=== PATIENT | male | born 1955 | race Caucasian/White ===

== ENCOUNTER 2017-08-07 17:25 | Inpatient (IN) | payer OTHER ==
[~2017-08-07] VITALS: Ht 167.6 cm; Wt 93.9 kg
--- NOTE | ~2017-08-07 | H ---
[facility] [place] [address] HISTORY AND PHYSICAL Name: STEPHIE ROBISON Room #: 516-1 ADM IN M.R.#: [id number] Admission: 08/07/17 Attend Phys: Lucho Dorantes MD Discharge: Date of : 59 Report #: [id number] THIS REPORT FOR: //name// CC: Lucho Hull DATE OF SERVICE: 08/07/2017 CHIEF COMPLAINT: CVA, Admission to inpatient rehab. HISTORY OF PRESENT ILLNESS: This is a 62-year-old gentleman who presented to [facility] with symptoms of left-sided weakness beginning 1 day prior that had progressed and he decided to seek further medical attention. Upon admission to the Emergency Department, he could not move his left side and had a headache. Unfortunately, he was outside the window for TPA. MRI performed revealed evidence of right medulla stroke up to the aleisha. He was seen in consultation by Neurology who has added Plavix for further prophylaxis and recommended further tight control on his hypertension, hyperlipidemia, type 2 diabetes and smoking cessation. He was seen by physical and occupational therapies and continued to remain weak. He transferred to [facility] inpatient rehab for further rehabilitation. Today seen in his room. He reports continued left upper extremity weakness. He is able to ambulate now with min assist. He reports some pain in his left trigger finger premorbid. Denies any numbness, tingling. He denies cough, shortness of breath, chest pain, nausea or constipation. PAST MEDICAL HISTORY: Type 2 diabetes, started using insulin approximately 3 years ago, hypertension, hyperlipidemia, history of SD in January of 2015 requiring percutaneous intervention with stents, COPD, umbilical hernia, carpal tunnel bilateral, history of gout, history of anxiety and depression. PAST SURGICAL HISTORY: Bilateral carpal tunnel release, repair of umbilical hernia, surgery on the dorsal aspect of his left hand, radial keratotomy approximately 30+ years ago. SOCIAL HISTORY: He lives at home with his . He smokes approximately half a pack of cigarettes per day. He is a social drinker. 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 Approximately 75% of his time is spent in physical labor, approximately 25% of his time spent at a desk, was independent with all ADLs and mobility prior. ALLERGIES: No known allergies. CODE STATUS: Full code. [address] [address] HISTORY AND PHYSICAL Name: STEPHIE ROBISON Room #: 516-1 [facility] IN M.R.#: [id number] Admission: 08/07/17 Attend Phys: Lucho Dorantes MD Discharge: Date of : 59 Report #: [id number] MEDICATIONS: Nicotine 14 mg patch daily, Paxil 10 mg daily, Plavix 75 mg daily, Lipitor 80 mg daily, aspirin 81 mg daily, metformin 1000 mg twice a day with meals, Effexor 150 mg twice a day, trazodone 50 mg at bedtime, metoprolol 50 mg twice a day, melatonin 1 mg at bedtime, Humalog sliding scale insulin before meals and at bedtime, gabapentin 600 mg at bedtime, clonazepam 0.5 mg every 8 hours as needed, glucagon and dextrose p.r.n., Benadryl 25 mg every 8 hours p.r.n., Tylenol 650 q.6 hours p.r.n., senna 1 tablet daily as needed, Colace 100 mg twice a day as needed. REVIEW OF SYSTEMS: A 14-point review of systems is negative except as listed in HPI. PHYSICAL EXAMINATION: VITAL SIGNS: Blood pressure 181/83, pulse 97, temperature 36.4, respirations 18. He has 99% oxygen sat on room air. GENERAL: A 62-year-old male in no obvious distress. NEUROLOGICAL: He is alert and oriented x 4. No memory or delayed recall. He is able to follow multistep commands. Sensation intact to left upper and left lower extremity to pain, light touch. CARDIAC: Regular rate and rhythm. CHEST: Lungs clear to auscultation bilaterally, no crackles, no wheeze. ABDOMEN: Bowel sounds positive, soft, nontender, nondistended. GENITOURINARY AND RECTAL: Deferred. EXTREMITIES: No calf edema. Functional range of motion of the right upper extremity intact. Left upper extremity markedly weak, decreased copra sampler strength. Left upper extremity 3-/5, right upper extremity 5/5, left lower extremity 3+/4-, right lower extremity 5/5, very little dorsiflexion on the left foot. He is sit to stand min assist, ambulated 25 feet with a handheld assist. SKIN: Intact. No wounds, no rash. ASSESSMENT: 1. Cerebrovascular accident of the right medulla up to the aleisha. 2. Left hemiparesis. 3. Hypertension. 4. Hyperlipidemia. 5. Type 2 diabetes mellitus. 6. Tobacco abuse. 7. Coronary artery disease with prior percutaneous intervention. 8. Chronic obstructive pulmonary disease. 9. Depression with anxiety. 10. History of gout. PLAN: The patient has been admitted to inpatient rehab to involve the interdisciplinary team. He will receive physical and occupational therapies to maximize functional abilities. [address] [address] HISTORY AND PHYSICAL Name: STEPHIE ROBISON Room #: 516-1 ADM IN Maryann#: [id number] Admission: 08/07/17 Attend Phys: Lucho Dorantes MD Discharge: Date of : 59 Report #: [id number] ADDENDUM HISTORY AND PHYSICAL/POSTADMISSION PHYSICIAN EVALUATION Please see the dictation from nurse practitioner, Ros Lee. HISTORY OF PRESENT ILLNESS: The patient was admitted with a right medulla pontine CVA at [facility]. He has left-sided hemiparesis and dysphagia and has been transferred to the inpatient rehabilitation gastelum here at [facility] for acute in-hospital inpatient rehabilitation. Agree with the H and P as noted. He is alert and pleasant. Depressed left nasolabial fold. He has left upper extremity clumsiness with weakness 3/5 proximally less than antigravity wrist extension. [employer] is poor. No significant volitional movement of the fingers. Left lower extremity is a little better with proximal strength grade 3+ to 4-. He has weakness distally, left ankle dorsiflexion is less than antigravity, eversion is less than antigravity. Reasonably intact to simultaneous stimulation both upper and lower extremities. There is no clonus. Negative Nunez's. ASSESSMENT: 1. Cerebrovascular accident, right medulla pontine in a right-handed white male. 2. Left hemiparesis. See the rest of the dictation noted above. PLAN: From a postadmission physician evaluation perspective, there are no relevant changes since the preadmission screening. Please see the patient's previous and current functional status. As far as risk of complications, he does have the above noted multiple medical comorbidities. The initial plan of care involves the interdisciplinary acute inpatient rehabilitation program with the goal of maximizing the patient's functional independence, so he can hopefully return back to his prior living situation. Measurable functional goals would be for him to become modified independent with transfers, mobility, ADLs, and swallowing. Prognosis is reasonably good with estimated length of stay probably at least 2-3 weeks pending progress. Potential barriers would include his multiple medical comorbidities and decreased functional status. The patient is an appropriate candidate for an acute in-hospital inpatient rehabilitation stay. He meets medical necessity criteria. He has the tolerance for therapies and has appropriate discharge goals back to the home setting. [address] [address] HISTORY AND PHYSICAL Name: RICKISTEPHIE Matthew Room #: 516-1 [facility] IN M.R.#: [id number] Admission: 08/07/17 Attend Phys: Lucho Dorantes MD Discharge: Date of : 59 Report #: [id number] Lucho Dorantes M.D. <ELECTRONICALLY SIGNED> By: AIDEE Sanford 08/11/17 1352 1156 1255 AIDEE Sanford /nt
--- NOTE | ~2017-08-07 | PLAN ---
[facility] [place] [address] REHAB UNIT PLAN OF CARE Name: STEPHIE ROBISON Room #: 516-1 ADM IN M.R.#: [id number] Admission: 08/07/17 Attend Phys: Lucho Dorantes MD Discharge: Date of : 59 Report #: [id number] THIS REPORT FOR: //name// CC: Lucho Hull DATE OF SERVICE: 08/09/2017 SUBJECTIVE: The patient was seen earlier. He was sleeping but would arouse. No obvious distress. OBJECTIVE In speech therapy there is functional comprehension. Cooperative. Working on functional mobility and adls. ASSESSMENT: 1. Cerebrovascular accident of the right medulla up to the aleisha. 2. Left hemiparesis. 3. Hypertension. 4. Hyperlipidemia. 5. Diabetes mellitus type 2. 6. Tobacco abuse. 7. Coronary artery disease with prior percutaneous intervention. 8. Chronic obstructive pulmonary disease. 9. Depression with anxiety. 10. History of gout. PLAN: The overall plan of care is based on the preadmission screen, post-admission physician evaluation and information garnered from therapy assessments. 1. Estimated length of stay is probably at least several weeks pending his progress. 2. Medical prognosis is reasonably good. 3. Anticipated interventions includes the interdisciplinary acute inpatient rehabilitation program. 4. Anticipated functional outcomes would be for the patient to become modified independent with transfers, mobility, ADLs, and back to his prior living situation. 5. Discharge destination would be back home where he lives with his . 6. Expected therapy by discipline includes PT OT 1 to 1-1/2 hours per day, each five days a week throughout the duration of the acute inpatient rehabilitation stay. 7. Diet would be dysphagia diet. <ELECTRONICALLY SIGNED> By: Lucho Dorantes MD 08/13/17 1504 [id number] 1815 Lucho Dorantes MD /PMT
--- NOTE | ~2017-08-07 | HC ---
[facility] [place] [address] CONSULTATION Name: STEPHIE ROBISON Room #: 516-1 ADM IN M.R.#: [id number] Admission: 08/07/17 Attend Phys: Lucho Dorantes MD Discharge: Date of : 59 Report #: [id number] THIS REPORT FOR: //name// CC: Lucho Hull DATE OF SERVICE: 08/14/2017 ATTENDING PHYSICIAN: Lucho Dorantes MD. PUBLICITY PERSON: Sam Swan, PhD. CLINICAL PRESENTATION: The patient is a 62-year-old male admitted to the rehabilitation unit at [facility] for comprehensive inpatient rehabilitation program due to deficits from a cerebrovascular accident at the right medulla and aleisha. His admitting assessment includes left hemiparesis, hypertension, hyperlipidemia, type 2 diabetes mellitus, tobacco abuse, coronary artery disease with prior percutaneous intervention, COPD, depression with anxiety and a history of gout. A complete description of his medical condition and history can be found in his medical record. Neuropsychological consultation was requested to provide assistance in the assessment of cognitive and emotional status and to provide recommendations and services. Prior to this most recent admission, he was living independently with his in their home. 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 The patient has 2 children that he adopted. His family is very supportive. He is a high school graduate. He reports having completed additional college coursework. The patient is a of [employer]. He reports having a history of alcohol and drug abuse along with PTSD as a result of his experience. He does not report alcohol or substance abuse within the last 10 years. TECHNIQUES UTILIZED: Clinical interview, review of medical records, staff consultation and behavioral observation, mini mental status exam 2 standard version, clock drawing, verbal fluency assessment (letter and category) and the Alexandre Interference Task. EXAMINATION FINDINGS: The patient was pleasant and cooperative with the assessment. He accurately described events surrounding his admission. There is no evidence of aphasia. His thoughts are logical and goal oriented. There is no evidence of thought disorder. He reports difficulty with sleep and fatigue as his primary symptoms. He does not report difficulty with cognitive function. He also identifies left-sided weakness and swallowing as deficits as a result of the stroke. The patient reports anxiety in regard to his ability to return to his prior [address] [address] CONSULTATION Name: STEPHIE ROBISON Room #: 516-1 ADM IN ..#: [id number] Admission: 08/07/17 Attend Phys: Lucho Dorantes MD Discharge: Date of : 59 Report #: [id number] level of employment. His performance on the MMSE 2 brief version was within normal limits with a raw score 16 of 16. Performance on the MMSE 2 standard version is within normal limits with a raw score of 30 of 30. Performance in letter fluency was in the average range with a raw score of 27, T score of 52. Category fluency was in the average range with a T score of 43. Performance on clock drawing was within normal limits. The color interference test of the Alexandre Interference Task was within normal limits with a T score of 53. The patient appears to be presenting with well-maintained neurocognitive functioning at this time. Increased anxiety is noted as a result of concern in regard to his ability to return to his prior level of employment. In regard to recommendation, a followup neuropsychological assessment is indicated to clarify the severity of cognitive deficits and to provide appropriate recommendations in regard to follow up use of compensatory strategies as well as employment debility. Thank you very much for allowing me to provide the consultation on this patient. <ELECTRONICALLY SIGNED> By: Sam Swan, PhD 08/16/17 1049 1817 0020 Sam Swan, PhD /nt
[2017-08-07 18:23] VITALS: BP 163/84
[2017-08-07] MEDS ORDERED: TYLENOL325 MG PO (18:28)
[2017-08-07] MEDS ORDERED: PROAIR HFA8.5 GM INH (18:29)
[2017-08-07] MEDS ORDERED: CHILDREN'S ASPI81 M1 PO (18:42)
[2017-08-07] MEDS ORDERED: LIPITOR80 MG PO (18:43)
[2017-08-07] MEDS ORDERED: CLONAZEPAM 0.50.5 M1 PO (18:44)
[2017-08-07] MEDS ORDERED: PLAVIX 75 MG TA75 M1 PO (18:45)
[2017-08-07] MEDS ORDERED: MITIGARE0.6 MG PO (18:45)
[2017-08-07] MEDS ORDERED: NEURONTIN600 MG PO (18:47)
[2017-08-07] MEDS ORDERED: DIPHENHIST50 MG PO (18:47)
[2017-08-07] MEDS ORDERED: NOVOLOG100 UNIT/1 SUBQ ×2 (18:50→18:51)
[2017-08-07] MEDS ORDERED: PAXIL10 MG PO (18:52)
[2017-08-07] MEDS ORDERED: METFORMIN HCL500 MG PO (18:53)
[2017-08-07] MEDS ORDERED: MELATONIN1 MG PO (18:53)
[2017-08-07] MEDS ORDERED: LOPRESSOR50 PO (18:54)
[2017-08-07] MEDS ORDERED: NICOTINE TRANSD21 M1 TRANSDERM (18:57)
[2017-08-07] MEDS ORDERED: NITROGLYCERIN0.4 MG SUBLING (18:58)
[2017-08-07] MEDS ORDERED: TRAZODONE HCL50 MG PO (18:59)
[2017-08-07] MEDS ORDERED: EFFEXOR XR75 MG PO (19:00)
[2017-08-07] MEDS ORDERED: NF (19:05)
[2017-08-07 20:00] VITALS: BP 182/102
[2017-08-07 22:45] VITALS: BP 158/95
[2017-08-08 06:21] LABS: HEMATOCRIT 39.7 % (42.0-52.0); MCH 27.6 pg (26.0-34.0); MCHC 32.8 g/dL (28.0-37.0); MCV 83.9 fL (80.0-100.0); RBC 4.73 mil/uL (4.50-6.00); RDW 14.4 % (10.5-14.5); WBC 12.1 thou/uL (4.0-11.0)
[2017-08-08 06:34] LABS: CALCIUM 9.2 mg/dL (8.5-10.1); CREATININE 0.8 mg/dL (0.7-1.3); POTASSIUM 4.1 mmol/L (3.5-5.1)
[2017-08-08 07:50] VITALS: BP 181/83
[2017-08-08 13:42] LABS: CHOLESTEROL 144 mg/dL (<200); HDL CHOLESTEROL 38 mg/dL (>40); LDL CHOLESTEROL 78 mg/dL (<100); TC:HDL 3.8 Ratio (Not establshd); TRIGLYCERIDE 140 mg/dL (<150); VLDL 28 mg/dL (<40)
[2017-08-08 20:35] VITALS: BP 172/88
[2017-08-09 01:47] LABS: URINE BILIRUBIN NEGATIVE (Negative); URINE BLOOD NEGATIVE (Negative); URINE CLARITY CLEAR; URINE COLOR YELLOW; URINE GLUCOSE-RANDOM* NEGATIVE (Negative); URINE KETONES NEGATIVE (Negative); URINE LEUKOCYTES-REFLEX NEGATIVE (Negative); URINE NITRITE-REFLEX NEGATIVE (Negative); URINE PROTEIN (DIPSTICK) NEGATIVE (Negative); URINE UROBILINOGEN 0.2 E.U./dl (0.2-1.0)
[2017-08-09 08:04] VITALS: BP 167/84
[2017-08-09 20:30] VITALS: BP 189/96
[2017-08-10 08:15] VITALS: BP 165/72
[2017-08-10 19:58] VITALS: BP 171/76
[2017-08-11 09:35] VITALS: BP 151/82
[2017-08-11 20:00] VITALS: BP 170/87
[2017-08-12 07:30] VITALS: BP 175/91
[2017-08-12 11:39] VITALS: BP 175/91
[2017-08-12 20:06] VITALS: BP 164/86
[2017-08-13 08:00] VITALS: BP 148/94
[2017-08-13 19:45] VITALS: BP 187/92
[2017-08-14 07:05] VITALS: BP 144/78
[2017-08-14 11:40] LABS: HEMOGLOBIN 13.6 gm/dL (14.0-18.0); MCH 27.7 pg (26.0-34.0); MCHC 33.1 g/dL (28.0-37.0); MCV 83.7 fL (80.0-100.0); RBC 4.9 mil/uL (4.50-6.00); RDW 14.4 % (10.5-14.5); WBC 12.9 thou/uL (4.0-11.0)
[2017-08-14 12:07] LABS: ALBUMIN 4.4 g/dL (3.4-5.0); CALCIUM 9.6 mg/dL (8.5-10.1); CREATININE 1.1 mg/dL (0.7-1.3); MAGNESIUM 1.8 mg/dL (1.8-2.4); POTASSIUM 3.8 mmol/L (3.5-5.1); TOTAL BILIRUBIN 0.3 mg/dL (<0.1-1.0)
[2017-08-14 19:41] VITALS: BP 171/92
[2017-08-15 09:30] VITALS: BP 141/100
[2017-08-15 19:40] VITALS: BP 174/74
[2017-08-15 21:59] VITALS: BP 168/82
[2017-08-16 06:41] VITALS: BP 156/82
[2017-08-16 19:39] VITALS: BP 154/80
[2017-08-17 09:40] VITALS: BP 158/79
[2017-08-17 20:00] VITALS: BP 172/80
[2017-08-18 07:15] VITALS: BP 167/87
[2017-08-18 19:45] VITALS: BP 182/83
[2017-08-19 04:21] LABS: ABSOLUTE NEUTROPHILS 8.7 thou/uL (1.4-8.2); BASOPHILS 0.3 % (0.0-2.0); EOSINOPHILS 3.2 % (0.0-3.0); HEMATOCRIT 40.5 % (42.0-52.0); HEMOGLOBIN 13.4 gm/dL (14.0-18.0); LYMPHOCYTES 22.7 % (24.0-44.0); MCH 27.8 pg (26.0-34.0); MCHC 33.2 g/dL (28.0-37.0); MCV 83.8 fL (80.0-100.0); MONOCYTES 7.4 % (1.0-8.0); PLATELET COUNT 296 thou/uL (150-400); POLYS 66.4 % (36.0-66.0); RBC 4.83 mil/uL (4.50-6.00); RDW 14.2 % (10.5-14.5); WBC 13.1 thou/uL (4.0-11.0)
[2017-08-19 04:30] LABS: CALCIUM 9.1 mg/dL (8.5-10.1); CREATININE 0.9 mg/dL (0.7-1.3); MAGNESIUM 1.6 mg/dL (1.8-2.4); POTASSIUM 4.2 mmol/L (3.5-5.1)
[2017-08-19 08:00] VITALS: BP 165/88
[2017-08-19 19:12] VITALS: BP 191/94
[2017-08-19 21:30] VITALS: BP 165/75
[2017-08-20 07:30] VITALS: BP 146/80
[2017-08-20] MEDS ORDERED: HYDRALAZINE 10M10 MG PO (16:47)
[2017-08-20] MEDS ORDERED: FOSINOPRIL SODI40 M1 PO (16:47)
[2017-08-20] MEDS ORDERED: COLACE100 MG PO (16:47)
[2017-08-20 20:00] VITALS: BP 167/84
[2017-08-21 07:38] VITALS: BP 167/84
[2017-08-21 07:49] VITALS: BP 175/89
[2017-08-21] MEDS ORDERED: VITAMIN B-12500 MCG PO (09:45)
[2017-08-21] MEDS ORDERED: VITAMIN D1000 UNI1 PO (09:45)
[2017-08-21 10:26] VITALS: BP 167/84
[2017-08-21 10:39] VITALS: BP 167/84
== END 2017-08-21 11:20 | disposition home or self-care (01) | DRG 56 ==
LOC: ENTRNSPT 08-21 11:18 → EDTRNSPTSTS 08-21 11:23
PROVIDERS: Internal Medicine; Nurse Practitioner; Physical Medicine & Rehabilitation
DX: G81.94 Hemiplegia, unspecified affecting left nondominant side (principal); I63.9 Cerebral infarction, unspecified; I10 Essential (primary) hypertension; E78.5 Hyperlipidemia, unspecified; I25.10 Atherosclerotic heart disease of native coronary artery without angina pectoris; J44.9 Chronic obstructive pulmonary disease, unspecified; F41.8 Other specified anxiety disorders; M10.9 Gout, unspecified; F32.9 Major depressive disorder, single episode, unspecified; F17.210 Nicotine dependence, cigarettes, uncomplicated; R13.10 Dysphagia, unspecified; D72.829 Elevated white blood cell count, unspecified; R52 Pain, unspecified; F43.10 Post-traumatic stress disorder, unspecified; E11.40 Type 2 diabetes mellitus with diabetic neuropathy, unspecified; E83.42 Hypomagnesemia; E53.8 Deficiency of other specified B group vitamins; E55.9 Vitamin D deficiency, unspecified; Z71.6 Tobacco abuse counseling; I25.2 Old myocardial infarction; Z79.82 Long term (current) use of aspirin; Z79.4 Long term (current) use of insulin; Z79.899 Other long term (current) drug therapy; Z95.5 Presence of coronary angioplasty implant and graft
CPT/HCPCS: 10112